=== PATIENT | female | born 1985 | race Two or more races ===

== ENCOUNTER 2017-12-13 18:18 | Inpatient (IN) | payer OTHER ==
[2017-12-13 18:31] VITALS: BMI 28.3
[2017-12-13] MEDS ORDERED: Lactated Ringer's 1,000 ML IV SCH (18:45)
[2017-12-13 20:31] LABS: BASO % 0.3 % (0.0-2.0); EOS # 0.2 K/uL (0.0-0.7); EOS % 1.9 % (0.0-4.0); HEMOGLOBIN 10.6 g/dL (12.0-16.0); LYMPH # 2.5 K/uL (1.0-4.3); LYMPH % 21.1 % (20.0-40.0); MEAN CELL VOLUME 62.9 fl (81.0-99.0); MEAN CORPUSCULAR HEMOGLOBIN 20.1 pg (27.0-31.0); MONO # 0.7 K/uL (0.0-0.8); MONO % 5.9 % (0.0-10.0); NEUT # 8.4 K/uL (1.8-7.0); NEUT % 70.8 % (50.0-75.0); NRBC % 0.2 % (0.0-0.0); RBC 5.26 Mil/uL (3.80-5.20); RED CELL DISTRIBUTION WIDTH 15.4 % (11.5-14.5); WHITE BLOOD COUNT 11.8 K/uL (4.8-10.8)
[2017-12-14] MEDS: Lactated Ringer's 1,000 ML IV SCH (05:59)
[2017-12-14] MEDS ORDERED: Nalbuphine 20 mg/ml Inj (1 ml) IVP STA (13:41)
--- NOTE | 2017-12-14 14:52 | OBPN ---
Datetime: 12/14/2017 09:34 IP Progress Plan: Induction IP Fetus A Comments: q5-7min Presentation-Admit: Vertex IP Progress Note Comment: s: c/o painful, infrequent ctxs. o: cervidel removed @ 9am i: 39.6wks srom p:begin pit augmentation process of induction NICHD Accel Fetus A IP Provider: [id number] FHR Category Provider Fetus A: Category I NICHD Variability Prov Fetus A: Moderate 6-25bpm Dilatation, Provider: 1 Effacement, Provider: 60 Station, Provider: -3 Datetime: 12/13/2017 18:45 Membranes, Provider: Ruptured Amniotic Fluid Color, Provider: Clear FHR - Baseline A Provider: 150 Vital Signs Provider: Reviewed NICHD Decel Fetus A IP Provider: None
[2017-12-15] MEDS ORDERED: Nalbuphine 20 mg/ml Inj (1 ml) IVP PRN (00:32)
[2017-12-15] MEDS ORDERED: Nalbuphine 20 mg/ml Inj (10 ml) IVP PRN (00:45)
[2017-12-15] MEDS ORDERED: Fentanyl/Bupivacaine HCl 250 ML EPI ONE (03:01)
[2017-12-15] MEDS: Lactated Ringer's 1,000 ML IV SCH ×2 (03:35→05:18)
[2017-12-15] MEDS ORDERED: Oxytocin 30 units/LR 500ML 30 U/500 ML BAG IV ONE ×2 (07:00→10:55)
[2017-12-15] MEDS ORDERED: Bupivacaine HCl 0.5% PF (30 ml) Inj ONE (08:37)
--- NOTE | 2017-12-15 09:20 | OBPN ---
Datetime: 12/15/2017 09:16 IP Progress Impression: Normal progression of labor; Reassuring heart rate IP Procedures: Sterile Vag Exam IP Progress Plan: Continue present management Contraction Comments Provider: q2-4min FHR - Baseline A Provider: 140s IP Progress Note Comment: Labor progressing well. Both MWB/FWB reassuring at this time. Continue c urrent management. Vital Signs Provider: Reviewed; Within Normal Limits FHR Category Provider Fetus A: Category I NICHD Variability Prov Fetus A: Moderate 6-25bpm Dilatation, Provider: 9 Effacement, Provider: 100 Station, Provider: 0 NICHD Decel Fetus A IP Provider: None
[2017-12-15] MEDS ORDERED: Lidocaine 2% Inj (20ml) ONE ×2 (09:32→15:25)
--- NOTE | 2017-12-15 11:56 | OBPN ---
Datetime: 12/15/2017 11:53 IP Progress Impression: Normal progression of labor IP Procedures: Sterile Vag Exam IP Progress Plan: Continue present management Contraction Comments Provider: q2-3min FHR - Baseline A Provider: 140s IP Progress Note Comment: Pt starting to push. Both MWB/FWB reassuring at this time. Anticipate NS VD. Vital Signs Provider: Reviewed; Within Normal Limits FHR Category Provider Fetus A: Category I NICHD Variability Prov Fetus A: Moderate 6-25bpm Dilatation, Provider: 10 Effacement, Provider: 100 Station, Provider: 1 NICHD Decel Fetus A IP Provider: None
[2017-12-15] MEDS ORDERED: Oxycodone/Acetaminophen 5/325 mg Tab PO PRN ×4 (15:57→19:38)
[2017-12-15] MEDS ORDERED: Benzocaine/Menthol SPRAY TOP PRN ×2 (15:57→19:38)
[2017-12-16 07:41] LABS: BASO # 0.1 K/uL (0.0-0.2); BASO % 0.5 % (0.0-2.0); EOS # 0.1 K/uL (0.0-0.7); EOS % 0.9 % (0.0-4.0); HEMOGLOBIN 7.3 g/dL (12.0-16.0); LYMPH # 2.2 K/uL (1.0-4.3); LYMPH % 14.2 % (20.0-40.0); MEAN CELL VOLUME 62.4 fl (81.0-99.0); MEAN CORPUSCULAR HEMOGLOBIN 19.8 pg (27.0-31.0); MEAN CORPUSCULAR HGB CONC 31.7 g/dL (33.0-37.0); MONO # 0.8 K/uL (0.0-0.8); MONO % 5.1 % (0.0-10.0); NEUT # 12.3 K/uL (1.8-7.0); NEUT % 79.3 % (50.0-75.0); NRBC % 0.1 % (0.0-0.0); RBC 3.69 Mil/uL (3.80-5.20); RED CELL DISTRIBUTION WIDTH 14.8 % (11.5-14.5); WHITE BLOOD COUNT 15.5 K/uL (4.8-10.8)
--- NOTE | 2017-12-16 08:46 | OBDS ---
DELIVERY PERSONNEL Delivery Doctor: Carlos Tate MD Rope Silica Machine Operator: Slade Davis RN/ Kilo Zimmerman RN Anesthesiologist: Ashok Reyes MD Resident: Dr Hu Sun MATERNAL INFORMATION Delivery Anesthesia: Epidural Medications in Delivery: Pitocin 30 units Estimated Blood Loss (ml): 300 Placenta Cultured: No Maternal Complications: None Provider Comments: Normal spontaneous vaginal delivery. Patient delivered viable infant with Apgars of 9 and 9 at one and 5 minutes respectively. Placenta delivered spontaneously. Laceration repaired, as above. Uterus firm and appropriately hemostatic fol lowing delivery. Patient tolerated delivery and repair well. No complications. Estimated blood loss 3 00 mL. LABOR SUMMARY EDC: 12/15/2017 00:00 No. Babies in Womb: 1 Attempted: No Labor Anesthesia: Epidural LABOR INFORMATION Reason for Induction: Not Applicable Onset of Labor: 12/13/2017 09:00 Complete Dilatation: 12/15/2017 11:50 Cervical Ripening Agents: Cytotec @ 50 mcg Oxytocin: Augmentation Group B Beta Strep: Positive Antibiotics # of Doses: 10 Antibiotics Time of Last Dose: 1408 Steroids Given: None Reason Steroids Not Administered: Not Applicable MEMBRANES Membranes Rupture Method: Spontaneous Rupture of Membranes: 12/13/2017 09:00 Length of Rupture (hrs): 54.27 Amniotic Fluid Color: Clear Amniotic Fluid Amount: Scant Amniotic Fluid Odor: Normal STAGES OF LABOR Stage 1 hrs: 50 Stage 1 min: 50 Stage 2 hrs: 3 Stage 2 min: 26 Stage 3 hrs: 0 Stage 3 min: 5 Total Time in Labor hrs: 54 Total Time in Labor min: 21 VAGINAL DELIVERY Episiotomy: None Laceration Extension: Second Degree Other Laceration: medial Laceration Repair: Yes Laceration Repair Note: Second degree midline peroneal laceration, with bilateral vaginal extensions . Areas infiltrated with 2% lidocaine. Lacerations repaired with 2. 0 repeat without complication. Pa tient tolerated repair well. Initial Vag Sponge Count: 10 laps _ 30 4x4's Final Vag Sponge Count: 10 laps _ 30 4x4's Initial Vag Sharps Count: 6 sutures _ 1 needle Final Vag Sharps Count: 6 sutures _ 1 needle Sponge Count Correct: Yes Sharps Count Correct: N/A Count Comment: Count correct _ acknowledged by MD BABY A INFORMATION Delivery Date/Time: 12/15/2017 15:16 Method of Delivery: Vaginal Born in Route : No : N/A Forceps: N/A Vacuum Extraction: N/A Shoulder Dystocia : No SHOULDER DYSTOCIA BABY A Delivery Date/Time: 12/15/2017 15:16 PRESENTATION/POSITION BABY A Presentation: Cephalic Cephalic Presentation: Vertex Breech Presentation: N/A PLACENTA INFORMATION BABY A Placenta Delivery Time : 12/15/2017 15:21 Placenta Method of Delivery: Spontaneous Placenta Status: Delivered SCORES BABY A Heart Rate 1 min: >100 bpm Resp Effort 1 min: Good Cry Reflex Irritability 1 min: Cough or Sneeze or Pulls Away Muscle Tone 1 min: Active Motion Color 1 min: Body [place], Extremities Blue Resuscitation Effort 1 min: Tactile Stimulation SCORE 1 MIN: 9 Heart Rate 5 min: >100 bpm Resp Effort 5 min: Good Cry Reflex Irritability 5 min: Cough or Sneeze or Pulls Away Muscle Tone 5 min: Active Motion Color 5 min: Body [place], Extremities Blue Resuscitation Effort 5 min: N/A SCORE 5 MIN: 9 INFANT INFORMATION BABY A Gestational Age at Delivery: 40.0 Gestational Status: Term Outcome : Liveborn Condition : Stable Sex: Male IDENTIFICATION/MEDS BABY A ID Band Number: [id number] ID Band Location: Left Leg; Left Arm Vitamin K Given : Not Given Erythromycin Given: Not Given WEIGHT/LENGTH BABY A Birthweight (gms): 3315 Weight (lb): 7 Weight (oz): 5 Infant Length Inches: 19.50 Length cms: 49.5 CORD INFORMATION BABY A No. Cord Vessels: 3 Nuchal Cord : N/A Nuchal Cord Other: N/A True Knot: 0 Cord Blood Taken: No Banking/Donate Info: Cord blood kit provided ([facility]) Suction: Mouth; Nose ASSESSMENT BABY A Infant Complications: None; Meconium Infant Complications Other: Meconium at delivery. Emt Dispatcher, Dr Grajeda, made aware. Physical Findings at Delivery: Within Normal Limits Infant Respirations: Appears Normal Truck Railroad And Bus Motor Mechanic/ALS Called : No Care By: Dr Grajeda Transferred To: Remains with Mother
--- NOTE | 2017-12-16 08:49 | OBDS ---
DELIVERY PERSONNEL Delivery Doctor: Carlos Tate MD Play Therapist: Slade Davis RN/ Kilo Zimmerman RN Anesthesiologist: Ashok Reyes MD Resident: Dr Hu Sun MATERNAL INFORMATION Delivery Anesthesia: Epidural Medications in Delivery: Pitocin 30 units Estimated Blood Loss (ml): 300 Placenta Cultured: No Maternal Complications: None Provider Comments: Normal spontaneous vaginal delivery. Patient delivered viable infant with Apgars of 9 and 9 at one and 5 minutes respectively. Placenta delivered spontaneously. Laceration repaired, as above. Uterus firm and appropriately hemostatic fol lowing delivery. Patient tolerated delivery and repair well. No complications. Estimated blood loss 3 00 mL. LABOR SUMMARY EDC: 12/15/2017 00:00 No. Babies in Womb: 1 Attempted: No Labor Anesthesia: Epidural LABOR INFORMATION Reason for Induction: Not Applicable Onset of Labor: 12/13/2017 09:00 Complete Dilatation: 12/15/2017 11:50 Cervical Ripening Agents: Cytotec @ 50 mcg Cervical Ripening Agents: Cytotec @ 50 mcg Cervical Ripening Agents: Cervidil Cervical Ripening Agents: Cervidil Oxytocin: Augmentation Group B Beta Strep: Positive Antibiotics # of Doses: 10 Antibiotics Time of Last Dose: 1408 Steroids Given: None Reason Steroids Not Administered: Not Applicable MEMBRANES Membranes Rupture Method: Spontaneous Membranes Rupture Method: Spontaneous Membranes Rupture Method: Spontaneous Membranes Rupture Method: Spontaneous Membranes Rupture Method: Spontaneous Membranes Rupture Method: Spontaneous Membranes Rupture Method: Spontaneous Membranes Rupture Method: Spontaneous Membranes Rupture Method: Spontaneous Membranes Rupture Method: Spontaneous Membranes Rupture Method: Spontaneous Membranes Rupture Method: Spontaneous Membranes Rupture Method: Spontaneous Membranes Rupture Method: Spontaneous Membranes Rupture Method: Spontaneous Membranes Rupture Method: Spontaneous Membranes Rupture Method: Spontaneous Membranes Rupture Method: Spontaneous Membranes Rupture Method: Spontaneous Membranes Rupture Method: Spontaneous Membranes Rupture Method: Spontaneous Membranes Rupture Method: Spontaneous Membranes Rupture Method: Spontaneous Membranes Rupture Method: Spontaneous Membranes Rupture Method: Spontaneous Membranes Rupture Method: Spontaneous Rupture of Membranes: 12/13/2017 09:00 Rupture of Membranes: 12/13/2017 09:00 Length of Rupture (hrs): 54.27 Length of Rupture (hrs): 54.27 Amniotic Fluid Color: Clear Amniotic Fluid Color: Clear Amniotic Fluid Color: Clear Amniotic Fluid Amount: Scant Amniotic Fluid Amount: Small Amniotic Fluid Amount: Small Amniotic Fluid Odor: Normal Amniotic Fluid Odor: Normal STAGES OF LABOR Stage 1 hrs: 50 Stage 1 min: 50 Stage 2 hrs: 3 Stage 2 min: 26 Stage 3 hrs: 0 Stage 3 min: 5 Total Time in Labor hrs: 54 Total Time in Labor min: 21 VAGINAL DELIVERY Episiotomy: None Laceration Extension: Second Degree Other Laceration: medial Laceration Repair: Yes Laceration Repair Note: Second degree midline peroneal laceration, with bilateral vaginal extensions . Areas infiltrated with 2% lidocaine. Lacerations repaired with 2. 0 repeat without complication. Pa tient tolerated repair well. Initial Vag Sponge Count: 10 laps _ 30 4x4's Final Vag Sponge Count: 10 laps _ 30 4x4's Initial Vag Sharps Count: 6 sutures _ 1 needle Final Vag Sharps Count: 6 sutures _ 1 needle Sponge Count Correct: Yes Sharps Count Correct: N/A Count Comment: Count correct _ acknowledged by MD BABY A INFORMATION Delivery Date/Time: 12/15/2017 15:16 Method of Delivery: Vaginal Method of Delivery: Vaginal Born in Route : No : N/A Forceps: N/A Vacuum Extraction: N/A Shoulder Dystocia : No SHOULDER DYSTOCIA BABY A Delivery Date/Time: 12/15/2017 15:16 PRESENTATION/POSITION BABY A Presentation: Cephalic Cephalic Presentation: Vertex Breech Presentation: N/A PLACENTA INFORMATION BABY A Placenta Delivery Time : 12/15/2017 15:21 Placenta Method of Delivery: Spontaneous Placenta Status: Delivered SCORES BABY A Heart Rate 1 min: >100 bpm Resp Effort 1 min: Good Cry Reflex Irritability 1 min: Cough or Sneeze or Pulls Away Muscle Tone 1 min: Active Motion Color 1 min: Body [place], Extremities Blue Resuscitation Effort 1 min: Tactile Stimulation SCORE 1 MIN: 9 Heart Rate 5 min: >100 bpm Resp Effort 5 min: Good Cry Reflex Irritability 5 min: Cough or Sneeze or Pulls Away Muscle Tone 5 min: Active Motion Color 5 min: Body [place], Extremities Blue Resuscitation Effort 5 min: N/A SCORE 5 MIN: 9 INFANT INFORMATION BABY A Gestational Age at Delivery: 40.0 Gestational Status: Term Infant Outcome : Liveborn Infant Condition : Stable Infant Sex: Male Infant Sex: Male IDENTIFICATION/MEDS BABY A ID Band Number: [id number] ID Band Location: Left Leg; Left Arm Vitamin K Given : Not Given Erythromycin Given: Not Given WEIGHT/LENGTH BABY A Infant Birthweight (gms): 3315 Weight (lb): 7 Infant Weight (oz): 5 Length Inches: 19.50 Length cms: 49.5 CORD INFORMATION BABY A No. Cord Vessels: 3 Nuchal Cord : N/A Nuchal Cord Other: N/A True Knot: 0 Cord Blood Taken: No Banking/Donate Info: Cord blood kit provided ([facility]) Infant Suction: Mouth; Nose ASSESSMENT BABY A Infant Complications: None; Meconium Complications Other: Meconium at delivery. Package Collector, Dr Grajeda, made aware. Physical Findings at Delivery: Within Normal Limits Respirations: Appears Normal Tunnel Drier Operator/ALS Called : No Infant Care By: Dr Grajeda Transferred To: Remains with Mother
[2017-12-16] MEDS ORDERED: Oxytocin 30 units/LR 500ML 30 U/500 ML BAG IV ONE (21:46)
--- NOTE | 2017-12-17 01:57 | OBPPN ---
Datetime: 12/16/2017 16:00 PP Pain Prov: Within normal limits PP Nausea Prov: Denies PP Flatus Prov: Yes PP BM Prov: Yes PP Breasts Prov: Normal PP Heart Prov: Normal PP Lungs Prov: Normal PP Abdomen/Uterus Prov: Normal PP Lochia Prov: Normal PP Vulva/Perineum Prov: Normal PP CVA Tenderness Prov: Normal PP Extremities Prov: Normal PP Progress Prov: Normal PP Impression Prov: Normal progression PP Plan Prov: Continue present management PP Progress Note Prov: She feels fine. Tolerated diet and ambulating without difficulty H/H 01/28 A: S.P day 1 Anemia asymtpomatic PLAN: anticiapte discharge in AM Vital Signs Provider PP: Reviewed; Within Normal Limits
--- NOTE | 2017-12-17 07:23 | OBDCSUM ---
Datetime: 12/17/2017 07:20 Discharged to, Provider: Home Follow up at, Provider: Dr. Maher Disch Instr Activity: Normal activity Disch Instr Diet: Regular Discharge Instructions, Provider: Routine instructions given Discharge Diagnosis, Provider: Term Delivered Discharge Time: 12/17/2017 07:20 Follow up in weeks, Provider: 6 weeks Contraception discussed, Prov: No Disch Activity Restrictions: No exercising; No lifting; No sexual activity; Nothing in vagina - Inte rcourse, tampons, douche
--- NOTE | 2017-12-17 07:30 | OBPPN ---
Datetime: 12/17/2017 07:24 PP Pain Prov: Within normal limits PP Abdomen/Uterus Prov: Normal PP Lochia Prov: Normal PP Extremities Prov: Normal PP Progress Prov: Normal PP Impression Prov: Normal progression PP Plan Prov: Discharge PP Progress Note Prov: PPD 2 s/p , doing well, breast and bottle feeding Pt states she has iron supplement, ferrelet 90, at home Rx motrin given. Vital Signs Provider PP: Reviewed; Within Normal Limits
[2017-12-18 01:31] VITALS: BP 103/57; PULSE 81; RESP 20; TEMP 98.3; O2SAT 100
== END 2017-12-17 15:00 | disposition home or self-care (01) | DRG 775 ==
LOC: H.L&D 18:31 → H.OB/GYN 12-15 17:46
PROVIDERS: ADMIT Obstetrics & Gynecology; ATTEND Obstetrics & Gynecology
PROC: 4A1HXCZ Monitoring of Products of Conception, Cardiac Rate, External Approach (ICD-10-PCS; 2017-12-13)
PROC: 10E0XZZ Delivery of Products of Conception, External Approach (ICD-10-PCS; principal; 2017-12-15)
PROC: 0KQM0ZZ Repair Perineum Muscle, Open Approach (ICD-10-PCS; 2017-12-15)
DX: O48.0 Post-term pregnancy (principal); O70.1 Second degree perineal laceration during delivery; O77.0 Labor and delivery complicated by meconium in amniotic fluid; O99.824 Streptococcus B carrier state complicating childbirth; Z3A.40 40 weeks gestation of pregnancy; Z37.0 Single live birth